=== PATIENT | male | born 1985 | race Two or more races ===

== ENCOUNTER 2025-01-17 01:50 | Emergency (ER) | payer OTHER | END 2025-01-17 02:30 | disposition home or self-care (01) | LOC: FB.ED 01:50 | DX: S93.402A Sprain of unspecified ligament of left ankle, initial encounter (principal); F10.120 Alcohol abuse with intoxication, uncomplicated; I10 Essential (primary) hypertension; F17.210 Nicotine dependence, cigarettes, uncomplicated; Y90.9 Presence of alcohol in blood, level not specified; W05.1XXA Fall from non-moving nonmotorized scooter, initial encounter | CPT/HCPCS: 99284 ==